=== PATIENT | female | born 1965 | race Caucasian/White ===

== ENCOUNTER 2017-07-17 19:52 | Emergency (ER) | payer MEDICAID ==
[2017-07-17 19:52] VITALS: BMI 33.7
[2017-07-17 20:34] VITALS: BP 137/76; PULSE 73; RESP 19; TEMP 98.1; O2SAT 97
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
--- NOTE | 2017-07-18 08:17 | RAD ---
PROCEDURE: Right Knee Radiographs. HISTORY: INJURY COMPARISON: None. FINDINGS: BONES: There is no definite evidence of acute displaced fracture. Relatively large enthesophytes seen at the superior and inferior poles of the patella as well as at the tibial tuberosity. Slightly heterogeneous density of the bone noted. JOINTS: Mild osteoarthritic changes are noted. JOINT EFFUSION: There is suprapatellar joint effusion. OTHER FINDINGS: Soft tissue swelling is noted at the anterior suprapatellar portion of the distal thigh. IMPRESSION: No definite evidence of acute displaced fracture. Suprapatellar joint effusion and adjacent soft tissue swelling. If clinically warranted further assessment by CT may be obtained.
== END 2017-07-17 21:26 | disposition home or self-care (01) ==
LOC: C.ER 19:52
DX: S82.001A Unspecified fracture of right patella, initial encounter for closed fracture (principal); V79.9XXA Bus occupant (driver) (passenger) injured in unspecified traffic accident, initial encounter; Y92.410 Unspecified street and highway as the place of occurrence of the external cause

== ENCOUNTER 2018-07-22 16:34 | Emergency (ER) | payer MEDICAID ==
[2018-07-22 16:35] VITALS: BMI 33.7
[2018-07-22 16:51] VITALS: BP 146/87; PULSE 99; RESP 19; TEMP 98; O2SAT 98
[2018-07-22] MEDS ORDERED: Tmp-Smz 800 mg-160 mg DS Tab PO STA (17:17)
[2018-07-22] MEDS ORDERED: Tmp-Smz 800 mg-160 mg DS Tab ONE (17:26)
--- NOTE | 2018-07-22 21:05 | C.PDOC ---
History Of Present Illness 53 y/o female presents to the ER complaining of abscess and cellulitis to the right leg which has been present for the past 1 week. Patient states that there were spontaneous drainage from the abscess after she applied warm packs to the area 3 days ago.Denies having fever and chills. Time Seen by Provider: 07/22/18 16:55 Chief Complaint (Nursing): Abnormal Skin Integrity History Per: Patient History/Exam Limitations: no limitations Onset/Duration Of Symptoms: Days Current Symptoms Are (Timing): Still Present Severity: Moderate Past Medical History Reviewed: Historical Data, Nursing Documentation, Vital Signs Vital Signs: Last Vital Signs Temp 98 F 07/22/18 16:47 Pulse 99 H 07/22/18 16:47 Resp 19 07/22/18 16:47 BP 146/87 07/22/18 16:47 Pulse Ox 98 07/22/18 16:47 - Medical History PMH: Asthma, HTN, Hyperthyroidism, Hypothyroidism Denies: Chronic Kidney Disease Surgical History: No Surg Hx Family History: States: No Known Family Hx - Social History Hx Tobacco Use: Yes Hx Alcohol Use: No Hx Substance Use: No - Immunization History Hx Tetanus Toxoid Vaccination: No Hx Influenza Vaccination: No Hx Pneumococcal Vaccination: No Review Of Systems Except As Marked, All Systems Reviewed And Found Negative. Constitutional: Negative for: Fever, Chills Skin: Positive for: Other (abscess and cellulitis to right leg) Physical Exam - Physical Exam Appears: Non-toxic, No Acute Distress Skin: Normal Color, Warm, Dry, Other (RLE: 3 cm circumferential area of erythema with central abscess and induration, now closed) Head: Atraumatic, Normacephalic Eye(s): bilateral: Normal Inspection Nose: Normal Oral Mucosa: Moist Neck: Supple Chest: Symmetrical Neurological/Psych: Oriented x3, Normal Speech ED Course And Treatment O2 Sat by Pulse Oximetry: 98 (RA) Pulse Ox Interpretation: Normal Medical Decision Making Medical Decision Making: Plan: --Bactrim PO Disposition - Disposition Referrals: Ya Garcia, [Non-Staff] - Disposition: HOME/ ROUTINE Disposition Time: 17:10 Condition: GOOD Additional Instructions: SHIRIN SAINZ, thank you for letting us take care of you today. The emergency medical care you received today was directed at your acute symptoms. If you were prescribed any medication, please fill it and take as directed. It may take several days for your symptoms to resolve. Return to the Emergency Department if your symptoms worsen, do not improve, or if you have any other problems. Please contact your doctor or call one of the physicians/clinics you have been referred to that are listed on the Patient Visit Information form that is included in your discharge packet. Bring any paperwork you were given at discharge with you along with any medications you are taking to your follow up visit. Our treatment cannot replace ongoing medical care by a primary care provider outside of the emergency department. Thank you for allowing the [facility] team to be part of your care today. Follow up with your primary care doctor in 2-3 days for a wound check. Prescriptions: Sulfamethoxazole/Trimethoprim [Bactrim DS 800 mg-160 mg] 1 tab PO BID #14 tab traMADol [Ultram] 50 mg PO Q8 PRN #15 tab PRN Reason: Pain, Severe (8-10) Instructions: Cellulitis (Skin Infection), Adult (DC) Forms: [employer] (Indonesian) - Clinical Impression Clinical Impression: Cellulitis - Scribe Statement The provider has reviewed the documentation as recorded by the Joshibe Chip Gay Provider Attestation: All medical record entries made by the Scribe were at my direction and personally dictated by me. I have reviewed the chart and agree that the record accurately reflects my personal performance of the history, physical exam, medical decision making, and the department course for this patient. I have also personally directed, reviewed, and agree with the discharge instructions and disposition.
== END 2018-07-22 17:26 | disposition home or self-care (01) ==
LOC: C.ER 16:34
DX: L03.115 Cellulitis of right lower limb (principal)